=== PATIENT | male | born 1970 | race Caucasian/White ===

== ENCOUNTER 2018-07-07 11:30 | Outpatient (RCR) | payer OTHER, SELFPAY ==
--- NOTE | 2018-07-13 07:26 | HP.PTEVAL ---
Patient's Visit Information CHICA CASTANON is a 47 year old M referred to Physical Therapy by Javier Saha MD with a diagnosis of R menisectomy. Date of Evaluation: 07/13/18 Physical Therapist: Donovan Ruelas DPT - Visit Plan Frequency: 1-2x /Week Duration: 4-6 Weeks Plan: Pt. had a negative zoran's sign, no increased heat at his calf and was not red. he did however complain of increased calf pain as his limiting factor. Due to recent surgery I suggested patient to call his physician for possible need for doppler to rule out DVT in case. I would like patient to start on knee ROM as tolerated, not to force. May start on bike, light. Add in RLE isometrics and hip/core strengthening. May use modalities as tolerated. Progress to functional strength when not painful. - Subjective Findings: Pt. is here today for his initial evaluation with diagnosis of R menisectomy. Pt. reports having pain for a few years, but finally got to the point where he was having intense pain with most daily activities and work. Pt. had surgery on 07/02 in [facility]. Pt. reporst having no pain directly after surgery, so he decided to work in his garage then had intense pain the next day. His main complaint now is his R calf. pt. reports having increased pain with walking, standing. Pt. had minimal pain at rest. He has not been doing any exercises, but has been trying to bend his knee. He denies any N/T in either LE. 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 He is hopeful to reduce his symptoms in order to get back to all activities without limitations. Pt. has already returned to work. - Pain R knee Pain Intensity (Out of 10): 3 Pain Intensity Range: 2, 6 - Objective POSTURE: Pt. has normal posture in stance. Pt. does have sligth L lateral wt. shift and lack slight TKE on R side. PALPATION: Pt. has increased tenderness at R calf. Pt. has normal healing of incisions. pt. has no redness or increased heat at R calf. Pt. has negative zoran's sign as well. NEURO: all in tact no issues with sensation. ROM: R knee- 0-5-88deg AROM, PROM- 0-3-93deg. Tight HS bilaterally. MMT: RLE- ankle 5/5 throughout; knee- ext SLR without extensor lag, flexion- 4/5: hip- flexion 4+/5, abd 4/5, ext 5/5. LLE- 5/5 throughout; except hip abd 4+/5. GAIT: Pt. ambulates without AD, but has decreased step length with LLE, decreased knee flexion of RLE during swing phase and decreased TKE during stance phase of RLE. STAIRS: Step to pattern. - Goals Goal 1:: Pt. to be I with HEP. Goal Time Frame: 4-6 Weeks Goal 2:: Pt. to have increased R knee ROM to 0-0-125deg without increase in symptoms. Goal Time Frame: 4-6 Weeks Goal 3:: Pt. to have increased strength of RLE by 1/2 grade of all effected musculature. Goal Time Frame: 4-6 Weeks Goal 4:: Pt. to ambulate unlimited distances with normal gait pattern no no increase in symptoms. Goal Time Frame: 4-6 Weeks Goal 5:: Pt. to negotiate steps with reciprocal pattern without increase in symptoms. Goal Time Frame: 4-6 Weeks Goal 6:: Pt. to resume all work related activities without increase in symptoms. Goal Time Frame: 4-6 Weeks - Rehabilitation Potential Physical Therapy Diagnosis: Pt. has signs and symptoms consistent with R menisectomy. Pt. has subsequent hypomobility of his R knee, decreased strength, decreased tolerance to ambulation and increased pain. Pt. would benefit from PT to address above limitations progressing back to all work and recreational activties without limitations. Rehabilitation Potential: Excellent - Anticipated Interventions Patient/Client Instruction: Educate patient on: Condition, Plan of Care, Risk Factors, Benefits of Fitness Program For the Purpose of:: To foster healthy habits, To improve decision making, To facilitate caregiver knowledge, To improve self management, To prevent re-injury, To improve ability to perform tasks related to life management Therapeutic Exercise to Include: Strength training, Power training, Endurance training, Postural training, Flexibilty training, Gait and locomotor training, Passive ROM, Active ROM, Dynamic Lumbar Stabilization For the Purpose of:: To decrease pain, To decrease swelling/inflammation, To increase ROM, To improve nutrient delivery to tissue, To increase oxygenation perfusion, To improve muscle performance and motor function, To improve gait and locomotor functions, To improve health of tissue, To decrease soft tissue restriction, To increase flexibility/ROM IF ES: Yes Cryotherapy (ice pack, ice massage): Yes Vasopneumatic device: Yes Comment: As long as DVT has been ruled out. For the Purpose of:: To decrease pain, To decrease swelling/inflammation, To increase ROM Thank you for the opportunity to evaluate your patient. For Medicare and Medicare HMO plans, please review the plan of care and approve it. It will need to be FAXED BACK to us at [phone] for Medicare purposes. For Medicare only, by signing this I certify the plan of care. Please let me know if there are questions or concerns regarding this plan of care. Physician Signature: Date:
--- NOTE | 2019-01-10 08:02 | HP.PTDCNRP_ITS ---
HP - Discharge Summary (1) - Patient Information CHICA CASTANON was seen in my office for initial evaluation on 07/13/18. The following Plan of Care was established for this patient: Initial Frequency: 1-2x /Week Initial Duration: 4-6 Weeks - Anticipated Interventions Patient/Client Instruction: Educate patient on: Condition, Plan of Care, Risk Factors, Benefits of Fitness Program For the Purpose of:: To foster healthy habits, To improve decision making, To facilitate caregiver knowledge, To improve self management, To prevent re- injury, To improve ability to perform tasks related to life management Therapeutic Exercise to Include: Strength training, Power training, Endurance training, Postural training, Flexibilty training, Gait and locomotor training, Passive ROM, Active ROM, Dynamic Lumbar Stabilization For the Purpose of:: To decrease pain, To decrease swelling/inflammation, To increase ROM, To improve nutrient delivery to tissue, To increase oxygenation perfusion, To improve muscle performance and motor function, To improve gait and locomotor functions, To improve health of tissue, To decrease soft tissue restriction, To increase flexibility/ROM IF ES: Yes Cryotherapy (ice pack, ice massage): Yes Vasopneumatic device: Yes Comment: As long as DVT has been ruled out. For the Purpose of:: To decrease pain, To decrease swelling/inflammation, To increase ROM This patient was last seen in our office 07/07/18. Pertinent comments regarding their Physical therapy will appear below: Pt. attended his initial evaluation, but not appt. since. Pt. sill be DC at this point intime. At this point I will be discontinuing this patient from physical therapy. I would be happy to see this patient again in the future if found appropriate by the physician. Thank you! Donovan Ruelas, ANNABELLAT
== END 2018-07-07 19:00 | disposition home or self-care (01) ==
LOC: PT 11:30
PROVIDERS: Family Provider Family Medicine; PCP Family Medicine; Referring Provider Specialist; Visit Provider Specialist
DX: M17.11 Unilateral primary osteoarthritis, right knee (principal); S83.241A Other tear of medial meniscus, current injury, right knee, initial encounter
CPT/HCPCS: 97110; 97161

== ENCOUNTER → 2018-07-19 14:47 | Outpatient (CLI) | payer OTHER, SELFPAY ==
--- NOTE | 2018-07-19 14:51 | VDLE_ITS ---
Reason For Study: Pain in Rt leg RIGHT LEFT GSV is normal. CFV is compressible, spontaneous, phasic, CFV is compressible, spontaneous, phasic, competent, and demonstrates normal competent and demonstrates normal augmentation. augmentation. FV is compressible, spontaneous, phasic, competent and demonstrates normal augmentation. POP V is compressible, spontaneous, phasic, competent and demonstrates normal augmentation. T/P Trunk is compressible. PTV is compressible. RT PerV is compressible. Procedure Exam performed in department. A preliminary report was called and/or faxed to Maria A. Interpretation Summary Deep veins of the right lower extremity are patent and compressible segmentally. There is no evidence of right lower extremity deep vein thrombosis. Valvular competence appears intact within the proximal deep venous system on the right . The right greater saphenous vein appears patent and compressible segmentally. Ordering Physician: Javier Saha Referring Physician: Sebastien Baer Performed By: Lizet Menard RVT and Student
== END ==
PROVIDERS: Family Provider Family Medicine; PCP Family Medicine; Referring Provider Specialist; Visit Provider Specialist
DX: M79.604 Pain in right leg (principal)
CPT/HCPCS: 93971

== ENCOUNTER 2022-02-26 08:10 | Outpatient (RCR) | payer BC, SELFPAY ==
--- NOTE | 2022-02-26 09:16 | HP.PTEVAL ---
Patient's Visit Information CHICA CASTANON is a 51 year old M referred to Physical Therapy by Dr. Donta Hodges DO with a diagnosis of Lumbar Pain. Date of Evaluation: 02/26/22 Physical Therapist: Abida Baca DPT - Visit Plan Frequency: 2x /Week Duration: 4 Weeks Plan: Hold- pending MRI- when ready start aquatic PT- neutral spine - Subjective Patient reports that he had a busy month of Dec- lots of carpet cleaning- no issues- went to [facility]- was okay- woke up day could not stand up. Drove home spent few days miserable- got [facility]- telehealth- steroid and muscle relaxer- nothing was getting better. Thursday after - went to MD- prescribed Gabapentin and steroid. Both ran out last week had a refill. Could walk a little bit. Edilberto Keith Chiropractor- nothing to [place]. Thursday last week carpet cleaned was doing okay. Over the weekend it hit him like a ton of bricks and he feels that he is back to square one. He went to chiro yesterday- felt a little better- whole left side was off. Went [facility] on Thursday- changed steroid and renewed Gabapentin. This morning he is miserable. Normally squatting helped but this weekend it was miserable. He is now most comfortable in squatting position and with his left knee pulled towards his chest. He has had back issues- years ago he was told he had OA and disc issues. Sciatica left side always-he has always just had leg pain. He can't sleep. He has no pain in the back just pain in the left leg. He has tried laying on his belly even with pillows. The leg pain varies so much- the last few days its been in his butt and hamstring. His left foot is a constant tingle. He almost feels like restless leg syndrome. Morning is the worst. Does not have any apt for any other MD's. He has a request in for MRI. He is as bad as he has been. Laying supine with this legs elevated he is almost painfree. 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 Gait: antalgic- decreased stance on the left LE- shift to the right- stopped 1x in 300 feet to stoop down due to pain- no AD. SLS: weight shift but unable to SLS due to pain. ROM: neutral only- all other movement in the lumbar spine increased pain, Hip: WFL. Flex: HS: severe, Gastroc: severe. Most comfortable position: supine with legs elevated on 2 bolsters. Will continue to assess as his inflammation diminishes. - Balance/Special Test Scores Oswestry Low Back Score: 38 - Goals Goal 1:: Patient will be I with HEP and progression Goal Time Frame: 4-6 Weeks Goal 2:: Patient will ambulate >300 feet with a normalized gait pattern Goal Time Frame: 4-6 Weeks Goal 3:: Patient will maintain proper posture t/o tx session to demo increased core s/s Goal Time Frame: 4-6 Weeks Goal 4:: Patient will report 80% improvement Goal Time Frame: 4-6 Weeks - Rehabilitation Potential Physical Therapy Diagnosis: Patient presents with hypomobility- he has decreased pain free ROM, LE and core strength/stabilization, flex and muscular endurance leading to poor posture and increased pain with ADL's. Rehabilitation Potential: Fair - Anticipated Interventions Patient/Client Instruction: Educate patient on: Benefits of Fitness Program Therapeutic Exercise to Include: Strength training, Endurance training, Balance training, Coordination, Agility training, Body mechanics, Postural training, Flexibilty training, Gait and locomotor training, In an aquatic setting, Dynamic Lumbar Stabilization, Shilpi Exercises, Scapular Strength/Stabilization For the Purpose of:: To improve muscle performance and motor function Thank you for the opportunity to evaluate your patient. For Medicare and Medicare HMO plans, please review the plan of care and approve it. It will need to be FAXED BACK to us at [phone] for Medicare purposes. For Medicare only, by signing this I certify the plan of care. Please let me know if there are questions or concerns regarding this plan of care. Physician Signature: Date:
--- NOTE | 2022-08-06 12:21 | HP.PT.NRP ---
CHICA CASTANON was seen in my office for initial evaluation on 02/26/22. The following Plan of Care was established for this patient: Initial Frequency: 2x /Week Initial Duration: 4 Weeks Patient/Client Instruction: Educate patient on: Benefits of Fitness Program Therapeutic Exercise to Include: Strength training, Endurance training, Balance training, Coordination, Agility training, Body mechanics, Postural training, Flexibilty training, Gait and locomotor training, In an aquatic setting, Dynamic Lumbar Stabilization, Shilpi Exercises, Scapular Strength/Stabilization For the Purpose of:: To improve muscle performance and motor function This patient was last seen in our office . Pertinent comments regarding their Physical therapy will appear below: Patient has not attended physical therapy in over 30 days- appropriate to be discharged and return to the MD as needed. At this point I will be discontinuing this patient from physical therapy. I would be happy to see this patient again in the future if found appropriate by the physician. Thank you! Abida Baca, DPT Balance/Gait/Functional tests - Balance/Special Test Scores Oswestry Low Back Score: 38
== END 2022-02-26 19:00 | disposition home or self-care (01) ==
LOC: PT 08:10
PROVIDERS: PCP Family Medicine; Referring Provider Family Medicine; Visit Provider Family Medicine
DX: M54.17 Radiculopathy, lumbosacral region (principal)
CPT/HCPCS: 97162

== ENCOUNTER 2022-02-26 11:19 | Observation (INO) | payer BC, SELFPAY ==
[2022-02-26 11:20] VITALS: BP 133/88; PULSE 78; RESP 18; TEMP 37.1; O2SAT 99; BMI 27.2
--- NOTE | 2022-02-26 11:35 | EDS_ITS ---
HPI History of Present Illness Chief Complaint: Back Informant: patient Onset/Context/Timing Onset: Weeks (3) Context: Sudden Onset Timing: Continuous Quality: Sharp, Dull, Aching, Burning and Throbbing Location: Lumbar, Buttock and Left Leg Worsened by: improves with - (Standing) Relieved by: Remaining Still Associated Symptoms Associated Symptoms: Tingling, Radiation to Left Leg and Fever; Negative for Numbness, Radiation to Right Leg, Abdominal Pain, Dysuria, Unable to Ambulate, Unable to Transfer, Urinary Retention, Urinary Incontinence, Constipation or Fecal Incontinence Narrative Narrative: Patient presents with back pain that has been constant for the past 3 weeks. Patient states it has been getting progressively worse. Been constant. Patient states it is sharp, dull, aching, burning, and throbbing. Patient states it is over the left lower lumbar area and radiates down his left leg. Patient states his pain is worse with standing and better with laying flat. Patient states he has been laying on the couch for the last 3 weeks. Patient admits to some tingling down his left leg. Patient denies any pain into his abdomen. Patient denies any bowel or bladder changes. Patient denies any saddle anesthesia. Patient states that his primary care physician has prescribed steroids and muscle relaxants for him which have only been minimally helpful. states that she has an occupational therapist here at the hospital and has been helping him do exercises at home which have not been helping. and patient feel that that he cannot go home with this pain at this time. [facility] Medical History Allergic reaction Back pain Daytime hypersomnia Hay fever History of fracture of orbit Knee pain Laceration of right thumb Neck pain Obstructive sleep apnea syndrome Snoring Home Medications gabapentin 100 mg capsule mg 02/26/22 [History Last Taken Unknown] methylprednisolone 4 mg tablets in a dose pack mg 02/26/22 [History Last Taken Unknown] Allergy/AdvReac Type Severity Reaction Status Date / Time cats Allergy Unknown Uncoded 02/26/22 11:20 Family History Other Diabetes Surgical History History of knee surgery Social History Smoking Status: Never smoker alcohol intake: current alcohol intake frequency: 0-2 drinks per day Alcohol type: beer ROS ROS ED Constitutional Constitutional ED: Denies chills or fever(s) Eyes Eyes: Denies blurry vision or change in vision ENT ENT ED: Denies rhinorrhea or sore throat Cardiovascular Cardiovascular: Denies chest pain or palpitations Respiratory/Chest Respiratory/Chest: Denies cough or dyspnea Gastrointestinal Gastrointestinal: Denies nausea or vomiting Genitourinary Genitourinary ED: Denies dysuria or hematuria Musculoskeletal Musculoskeletal: Reports back pain; Denies neck pain Integumentary Denies abscess or rash Neurologic Neurologic: Denies headache(s) or weakness Allergic/Immunologic Allergic/Immunologic ED: Denies mouth swelling or urticaria EXAM Physical Exam Const Vital Signs: 02/26/22 11:20 02/26/22 13:23 Temperature 98.8 F Temperature Source Temporal Pulse Rate 78 67 Respiratory Rate 18 14 Blood Pressure 133/88 H 141/83 H Blood Pressure Mean 103 102 Pulse Ox 99 98 Oxygen Delivery Method Room Air Room Air Positive well nourished and well developed General Appearance ED: well developed and NAD HEENT Reports moist mucous membranes Neck supple and no JVD Back/Spine Back/Spine Narrative: There is tenderness and spasm over the left lumbar paraspinal muscles. There is tenderness over the sciatic notch. There is no edema or ecchymosis. There is no bony crepitance or step-off. Range of motion was limited in all motions of the lumbar spine secondary to pain. Straight leg raises were negative bilaterally. Strength is 5/5 bilaterally in the lower extremities. There are no sensory deficits. Deep tendon reflexes are 2/4 bilaterally. Lumbar Spine / Lower Back: ROM limited and straight leg raise negative bilaterally Extremity normal to inspection General Extremety ED: Negative for edema or tenderness General Extremity: Negative for edema Neuro oriented x3 and no sensory deficits noted Sensorium / Orientation: alert Motor Exam: strength 5/5 throughout Deep Tendon Reflexes: Rt Patellar (L4): 2+, Lt Patellar (L4): 2+, Rt Ankle (S1): 2+ and Lt Ankle (S1): 2+ Deep Tendon Reflexes Back: Rt Patellar (L4): 2+, Lt Patellar (L4): 2+, Rt Ankle (S1): 2+ and Lt Ankle (S1): 2+ Psych mental status grossly normal MDM MDM MDM Narrative Medical decision making narrative: Patient is given injection of morphine here. X-rays of the lumbar spine were obtained. There are 2 views. On my interpretation, there is no acute fracture or spondylolisthesis. Patient had no improvement of his pain. The patient was given injections of Dilaudid and Norflex. Patient states his pain went from a 10 to a 9 after this. Patient is concerned about going home and having persistent pain. I discussed the case with the hospitalist. He will admit the patient for intractable pain. Patient and spouse understand and are agreeable with the plan. All questions were answered. Radiography X-Ray: LS SPine, Read by ED Physician, Read by Radiologist, No Fracture and Normal Bony Alignment Diagnostic Testing: Clinical Impression(s) from Imaging Studies Lumbar Spine X-Ray 02/26/22 12:10 IMPRESSION: Minor degenerative spurring of the lumbar spine. Electronically Signed: Neil Wen MD at 12:54 EDT Reading Location ID and State: [facility] / [place] , Service support , Discharge Plan Triage Chief Complaint: Back ED Provider: Shlomo Luo Dx/Rx/DC Orders Clinical Impression: Intractable low back pain, Lumbar radiculopathy Prescriptions: No Action gabapentin 100 mg capsule Label Comments: TAKE 1-3 CAPSULES BY MOUTH THREE TIMES DAILY FOR LEFT LEG PAIN methylprednisolone 4 mg tablets,dose pack Label Comments: TAKE BY MOUTH DIRECTED ON INSIDE OF PACKAGE Primary Care Provider: Sebastien Baer Referrals: Sebastien Baer MD [Primary Care Provider] - Disposition Disposition: Acute Care Hospital [facility]
[2022-02-26] MEDS: Morphine 4 MG/ML Syringe IM (11:52)
--- NOTE | 2022-02-26 12:10 | RAD_ITS ---
STUDY: X-RAY - LUMBAR SPINE REASON FOR EXAM: Male, 51 years old. Injury/Pain TECHNIQUE: 2 view(s) of the lumbar spine were obtained. COMPARISON: None FINDINGS: Normal lumbar lordosis. There is no substantial scoliosis. There is a normal alignment of the vertebrae. Normal vertebral bodies. Very minor anterior endplate spurring is present at several levels. Normal disc space heights. There is no demonstrated fracture. The soft tissue structures are unremarkable. Minor distal aortic calcifications noted. A moderate to large amount of stool is present throughout the colon. RAD/Lumbar Spine 2 or 3 Views IMPRESSION: Minor degenerative spurring of the lumbar spine. Electronically Signed: Neil Wen MD at 12:54 EDT ,
[2022-02-26] MEDS: HYDROmorphone 0.5 MG/0.5 ML SYRINGE IM (12:46)
[2022-02-26] MEDS: Orphenadrine 60 MG/2 ML Ampul IM (12:48)
[2022-02-26 13:23] VITALS: BP 141/83; PULSE 67; RESP 14; O2SAT 98
--- NOTE | 2022-02-26 14:40 | HP.PCM.HOS_ITS ---
[facility] General Date of Service: 02/26/22 Chief Complaint: Left leg pain [facility] Narrative CHICA CASTANON, is a 51 M who presents with a 3-week history of left leg pain. Pain has been very intense on the lateral aspect of his leg. It comes and goes but overall its been very persistent. Patient does have paresthesias. His foot which has gotten worse. He has taken prednisone and now Medrol Dosepak without any significant relief. He has attempted therapy at home but has not been unable to engage adequately due to pain. He has tried exercises where he lays on the floor and tries to extend his back but is barely able to get off the floor due to the pain in his leg. So for the past 3 weeks he has been more less sitting on the couch. He denies any bowel or bladder incontinence. The patient has had a history of sciatica but never to this severity. [facility] Medical History Allergic reaction Back pain Daytime hypersomnia Hay fever History of fracture of orbit Knee pain Laceration of right thumb Neck pain Obstructive sleep apnea syndrome Snoring Home Medications gabapentin 100 mg capsule 100 - 300 mg PO TID NERVES 02/26/22 [History Last Taken 02/26/22] ibuprofen 200 mg tablet 800 mg PO TID PAIN 02/26/22 [History Last Taken 02/26/22] methylprednisolone 4 mg tablets in a dose pack 4 mg PO DAILY 02/26/22 [History Last Taken 02/26/22] Allergy/AdvReac Type Severity Reaction Status Date / Time cats Allergy Unknown Uncoded 02/26/22 11:20 Family History Other Diabetes Surgical History History of knee surgery Social History Smoking Status: Never smoker alcohol intake: current alcohol intake frequency: 0-2 drinks per day Alcohol type: beer ROS ROS Narrative No bowel or bladder incontinence. All review of systems were negative except as mentioned above in the history of present illness and the other review of systems. Vital Signs Vital Signs Vital Signs: 02/26/22 11:20 02/26/22 13:23 Temperature 37.1 C Temperature Source Temporal Pulse Rate 78 67 Respiratory Rate 18 14 Blood Pressure 133/88 H 141/83 H Blood Pressure Mean 103 102 Pulse Ox 99 98 Oxygen Delivery Method Room Air Room Air Weight Weight: 86.183 kg Body Mass Index (BMI) 27.2 Physical Exam Const alert Constitutional Narrative: Uncomfortable. HEENT normocephalic Resp normal respiratory effort, no retractions, no use of accessory muscles and clear to auscultation bilaterally Cardio regular rate, regular rhythm, S1 normal heart sound and S2 normal heart sound GI normal to inspection, nondistended, normoactive bowel sounds, soft to palpation, non-tender and non-distended Neuro Neuro Narrative: Muscle strength out of 5-5 in plantarflexion of his feet as well as dorsiflexion of his great toes bilaterally. Sensation is grossly intact throughout the lower extremities. DTRs diminished in the left patellar reflex. Sensorium / Orientation: awake and alert Psych affect normal Results Radiology Impression Lumbar Spine X-Ray 02/26/22 12:10 IMPRESSION: Minor degenerative spurring of the lumbar spine. Electronically Signed: Neil Wen MD at 12:54 EDT Reading Location ID and State: [address] [place] [address] , Service support , Assessment & Plan Assessment/Plan (1) Lumbar radiculopathy: PLAN: Concern is for disc herniation with nerve root impingement. Other possibilities could be arthritis or even abscess, though the latter is highly unlikely and absence of other constitutional symptoms. Explained to the patient that is very important that he do therapy. Understanding that he has difficulty engaging in therapy due to the pain but he does have to start somewhere. Told him that we will hold off on therapy until we know the results of the MRI but afterwards and likely he is going to require therapy. Patient may require surgery but his initial instinct was to not want surgery but is unclear what is causing his pain specifically. Patient has no red flag signs for cauda equina at this point in time. Pain control to be with ketorolac, scheduled acetaminophen and scheduled cyclobenzaprine and as needed oxycodone. PLAN: Plan VTE prophylaxis: Not indicated given current observation status. Charges/Coding Visit Charges OBSV E&M: 66571 Initial observation care L2
[2022-02-26 14:53] VITALS: BP 141/83; PULSE 67; RESP 14; TEMP 37.1; O2SAT 98
[2022-02-26 15:10] VITALS: BMI 27.1
[2022-02-26 15:16] VITALS: BP 133/89; PULSE 69; RESP 16; TEMP 36.7; O2SAT 99
--- NOTE | 2022-02-26 15:17 | MRI_ITS ---
STUDY: MRI LUMBAR SPINE WITHOUT CONTRAST REASON FOR EXAM: Male, 51 years old. radicular back pain -- left leg pain and paresthesias TECHNIQUE: Standardized fat and water weighted pulse sequences were obtained in the sagittal and axial planes. COMPARISON: Lumbar spine radiograph from today. FINDINGS: T12-L1: Normal endplates. Normal disc height, hydration and morphology. Normal bilateral facet joints. Normal central canal and bilateral lateral recesses. Normal bilateral intervertebral neural foramina. Normal lumbar lordosis. There is no substantial scoliosis. Normal conus medullaris that terminates at the L1 level. L1-2: Normal endplates. Normal disc height, hydration and morphology. Normal bilateral facet joints. Normal central canal and bilateral lateral recesses. Normal bilateral intervertebral neural foramina. L2-3: Normal endplates. Normal disc height, hydration and morphology. Normal bilateral facet joints. Normal central canal and bilateral lateral recesses. Normal bilateral intervertebral neural foramina. L3-4: Normal endplates. Normal disc height, hydration and morphology. Normal bilateral facet joints. Normal central canal and bilateral lateral recesses. Normal bilateral intervertebral neural foramina. L4-5: Normal endplates. Normal disc height, hydration and morphology. Normal bilateral facet joints. Normal central canal and bilateral lateral recesses. Normal bilateral intervertebral neural foramina. L5-S1: Disc space narrowing and desiccation. Small broad-based posterior disc protrusion on the left impinging the L5 and S1 nerve roots. Central canal and right neural foramen patent. Normal visualized sacral ala. Normal visualized paraspinous soft tissue structures. MRI/Spine Lumbar (Routine) IMPRESSION: Small broad-based posterior disc protrusion at L5-S1 with impingement upon the L5 and S1 nerve root on the left. Electronically Signed: Walter Fowler MD at 21:33 EDT ,
[2022-02-26 17:46] VITALS: BP 137/80; PULSE 74
[2022-02-26] MEDS: MethylPREDNISolone DosePak 4 MG BOX PO ×2 (17:48→21:15)
[2022-02-26] MEDS: Ketorolac 30 MG/ML Syringe IV ×2 (17:48→23:17)
[2022-02-26 21:13] VITALS: BP 126/77; PULSE 79; RESP 16; TEMP 36.3; O2SAT 96
[2022-02-26] MEDS: cycloBENZAPRine HCl 10 MG Tablet PO (21:15)
[2022-02-26] MEDS: Gabapentin 100 MG Capsule PO (21:20)
[2022-02-26] MEDS: oxyCODONE 5 MG Tablet PO (21:20)
[2022-02-26] MEDS: 0.9% Saline Lock 10 ML Syringe IV (23:18)
[2022-02-27 03:12] VITALS: BP 129/82; PULSE 61; RESP 18; TEMP 36.6; O2SAT 98
[2022-02-27] MEDS: 0.9% Saline Lock 10 ML Syringe IV ×2 (05:13→23:28)
[2022-02-27] MEDS: Gabapentin 100 MG Capsule PO ×2 (05:13→13:01)
[2022-02-27] MEDS: Ketorolac 30 MG/ML Syringe IV ×4 (05:13→23:28)
[2022-02-27] MEDS: cycloBENZAPRine HCl 10 MG Tablet PO ×3 (05:13→20:45)
[2022-02-27 09:02] VITALS: BP 136/87; PULSE 81; RESP 16; TEMP 36.5; O2SAT 97
[2022-02-27] MEDS: oxyCODONE 5 MG Tablet 10 MG PO ×2 (09:05→20:45)
[2022-02-27] MEDS: MethylPREDNISolone DosePak 4 MG BOX PO ×2 (09:11→20:46)
[2022-02-27 12:54] VITALS: BP 138/86; PULSE 78; RESP 16; TEMP 36.6; O2SAT 96
--- NOTE | 2022-02-27 15:06 | PCM.PN.HOSP ---
Subjective Subjective Patient that he is still having ongoing left leg pain. Leg is predominantly sore in the buttock and into the hamstring with intermittent pain into his left calf. He has some ongoing numbness in his foot but no motor deficits in the lower extremity. He denies any bowel bladder changes. He states that overall his back pain is not that severe however the leg pain that has become debilitating for him. Objective Data Objective Data Vital Signs: Vital Signs Temp Pulse Resp BP Pulse Ox O2 Del Method 97.9 F 78 16 138/86 H 96 Room Air 02/27/22 12:54 02/27/22 12:54 02/27/22 12:54 02/27/22 12:54 02/27/22 12:54 02/27/22 12:54 Oxygen Delivery Method Room Air Weight: 83.3 kg Body Mass Index (BMI) 27.1 Intake & Output: Intake and Output for Last 24 Hours 02/25/22 02/26/22 02/27/22 23:59 23:59 23:59 Intake Total 960 / 960 620 / 620 Balance 960 / 960 620 / 620 Radiography Diagnostic Testing: Radiology Impression Lumbar Spine MRI 02/26/22 15:17 IMPRESSION: Small broad-based posterior disc protrusion at L5-S1 with impingement upon the L5 and S1 nerve root on the left. Electronically Signed: Walter Fowler MD at 21:33 EDT , Physical Exam Const alert, oriented x3, no apparent distress, average body habitus, healthy appearing and well nourished Constitutional Narrative: Middle-aged white male sitting up in bed, appears comfortable nontoxic HEENT head/scalp atraumatic and moist oral mucous membranes Head and Scalp: normocephalic Resp normal respiratory effort, no use of accessory muscles and clear to auscultation bilaterally Auscultation: Negative for crackles, rales, rhonchi or wheezes Cardio regular rate, regular rhythm, S1 normal heart sound, S2 normal heart sound, no murmurs, no rub, no gallops, no clicks and no JVD GI normal to inspection, nondistended, normoactive bowel sounds, soft to palpation and non-tender Extremity no clubbing, cyanosis or edema Extremity Narrative: 2+ pedal pulses Neuro Neuro Narrative: Reflexes are normal, no motor deficits, sensory deficit noted at distal left lower extremity, positive straight leg raise Speech: speech normal Assessment & Plan Assessment/Plan (1) Intractable low back pain: (2) Lumbar radiculopathy: (3) HNP (herniated nucleus pulposus), lumbar: PLAN: Plan Lumbar radiculopathy secondary to L5-S1 HNP -MRI shows small broad-based disc protrusion at L 5 S1 with impingement upon the L5 and S1 nerve root on the left but no central canal stenosis or right neural foramina occlusion -Continue Toradol -Continue Oxy -Continue Medrol Dosepak -Continue Flexeril -Increase gabapentin from 100 mg to 300 mg 3 times daily -Patient was having increased symptoms with straight extension based exercises at home--> given this I suspect there is a lateral component that needs to be addressed first and probably some extensive inflammation -We will consult pain management for possible injection to improve pain tolerance and mobility and then patient has been referred to physical therapy to be initiated after discharge -Anticipate Dr. Art to see patient this evening and hopefully schedule procedure for tomorrow with discharge within the next 24 hours CINDY -Patient utilizes [employer] at home -Encourage patient to bring in home unit -Follows with pulmonary medicine DVT prophylaxis -Encourage mobility and out of bed -Overall low risk Charges/Coding Visit Charges Inpatient E&M: 11662 Subs Hosp L2
[2022-02-27 17:07] VITALS: BP 125/89; PULSE 71; RESP 16; TEMP 36.5; O2SAT 98
[2022-02-27 20:40] VITALS: BP 128/79; PULSE 75; RESP 16; TEMP 36.7; O2SAT 97
[2022-02-27] MEDS: Gabapentin 300 MG Capsule PO (20:45)
[2022-02-28] VITALS (9 sets, daily range): BP systolic 124–134; BP diastolic 82–94; PULSE 65–84; RESP 16–18; TEMP 36.5–37; O2SAT 95–98
[2022-02-28] MEDS: Ketorolac 30 MG/ML Syringe IV (05:35)
[2022-02-28] MEDS: cycloBENZAPRine HCl 10 MG Tablet PO (05:35)
[2022-02-28] MEDS: Gabapentin 300 MG Capsule PO (05:39)
[2022-02-28] MEDS: oxyCODONE 5 MG Tablet 10 MG PO (08:14)
[2022-02-28] MEDS: MethylPREDNISolone DosePak 4 MG BOX PO (08:15)
--- NOTE | 2022-02-28 08:50 | RAD_ITS ---
STUDY: X-RAY - LUMBAR SPINE REASON FOR EXAM: Male, 51 years old. LUMBAR EPIDURAL IN OR, FLUORO TIME 1.5 SEC, 3.46 MGY TECHNIQUE: 1 view(s) of the lumbar spine were obtained. COMPARISON: None FINDINGS: Intraoperative images provided for lumbar epidural. RAD/Spine 1 View Any Level IMPRESSION: Intraoperative imaging provided for lumbar epidural. Electronically Signed: Kit Beauchamp MD at 15:27 EDT ,
[2022-02-28] MEDS: Lactated Ringers 1,000 ML 15 ML IV (09:25)
[2022-02-28] MEDS: Triamcinolone Acetonide 40 MG/ML Vial (09:46)
--- NOTE | 2022-02-28 10:50 | CASEMGMT ---
Pt already provided script for OP therapy for discharge. Luna VARGHESE CM
--- NOTE | 2022-02-28 11:09 | PCM.DC.SUM ---
Providers Date of Admission: 02/26/22 Date of Discharge: 02/28/22 Primary Care Physician: Dr. Sebastien Baer MD Consultations 02/27/22 09:47 Consult: Pain Management Routine Consulting Provider: Brinda Art Reason for Consult: HNP Lumbar for injection EMERGENT Consult: No MD Notified: Yes Date Notified: 02/27/22 Time Notified: 09:47 Method of Notification: Message w/ office staff Reason For Visit: BACK PAIN Diagnosis Discharge Diagnosis (1) Intractable low back pain: Status: Acute Code(s): M54.59 - Other low back pain (2) Lumbar radiculopathy: Status: Acute Code(s): M54.16 - Radiculopathy, lumbar region (3) HNP (herniated nucleus pulposus), lumbar: Status: Acute Code(s): M51.26 - Other intervertebral disc displacement, lumbar region Medications at Discharge Home Medications ibuprofen 200 mg tablet 800 mg PO TID PAIN 02/26/22 cyclobenzaprine 10 mg tablet 10 mg PO TID 14 days #42 tabs 02/28/22 gabapentin 300 mg capsule 300 mg PO TID #0 caps 02/28/22 lidocaine 5 % topical patch (Lidoderm) 2 patch topical DAILY #30 ea 02/28/22 oxycodone 5 mg tablet 10 mg PO Q4H PRN PRN Pain Score 6-10 3 days #24 tabs 02/28/22 Hospital Course Procedures None Summary of Care Provided Minutes Spent on Discharge: 35 Hospital Course: 51-year-old male past medical history of sciatica, who comes in with a 3-week history of left leg pain that has been intense. He has associated paresthesias. He has taken prednisone and was currently on Medrol Dosepak. He had a tried therapy at home but he has not been able to do his activities of daily living because of pain. MRI of the back showed small disc protrusion at L5-S1 with impingement upon the L5 and S1 nerve root. He was admitted and managed on multi per modalities including Toradol, oxycodone, Medrol Dosepak, Flexeril and gabapentin. He completed Medrol Dosepak on 02/27/22. Pain management was consulted. Patient had an epidural injection today 02/28/22. Patient was discharged home on oxycodone as needed, gabapentin, Flexeril scheduled as well ibuprofen. Lidoderm patches were also given. He will follow-up with his primary care doctor within [address] Art within 2 weeks. Physical Exam Narrative Physical exam: General: Alert, Oriented x3, Cooperative, No apparent distress HEENT: Atraumatic Oral: Moist Mucosa Neck: Supple Lungs: Clear to auscultation Cardiovascular: HS I+II, regular, no murmurs Abdomen: Bowel Sounds Present, Soft, Non Tender Extremities: No edema Skin: No rashes, No breakdown Neurological: Grossly intact Psych/Mental Status: Appropriate Weight / BMI Weight Weight: 83.3 kg Body Mass Index (BMI) 27.1 D/C Instructions Discharge Diet: No restrictions Meaningful Use Info Meaningful Use Diagnoses (Choose all that apply): None applicable Discharge Plan Admission Admit Date/Time: 02/26/22 14:36 Primary Reason for Your Visit: Acute on chronic back pain Attending Provider: Cassandra Mascorro Primary Care Provider: Sebastien Baer Consulting Providers: Shlomo Cummings ; Brinda Art ; Génesis Casanova Instructions Additional Instructions / Restrictions: Take note of changes to your medications. Follow-up with your exercise regimen per PT Follow-up with Dr. Art in the outpatient as scheduled Discharge Orders/Prescriptions Prescriptions: New cyclobenzaprine 10 mg Tablet 10 mg PO TID 14 Days Qty: 42 0RF gabapentin 300 mg Capsule 300 mg PO TID Qty: 0 0RF oxycodone 5 mg Tablet 10 mg PO Q4H PRN PRN (Reason: Pain Score 6-10) 3 Days Qty: 24 0RF lidocaine [Lidoderm] 5 % adhesive patch,medicated 2 patch topical DAILY Qty: 30 0RF Rx Instructions: leave on most painful area for up to 12 hrs Continued ibuprofen 200 mg Tablet 800 mg PO TID Discontinued gabapentin 100 mg capsule 100 - 300 mg PO TID Label Comments: TAKE 1-3 CAPSULES BY MOUTH THREE TIMES DAILY FOR LEFT LEG PAIN methylprednisolone 4 mg tablets,dose pack 4 mg PO DAILY Label Comments: TAKE BY MOUTH DIRECTED ON INSIDE OF PACKAGE Referrals / Follow Up: Brinda Art MD [Med Staff - Active Staff] - Within 2 Weeks Sebastien Baer MD [Primary Care Provider] - In 1 Week Disposition Disposition (needs filled in before D/C Order can be placed): Home, Self Care Charges/Coding Visit Charges Inpatient E&M: 60901 Disch Hosp
--- NOTE | 2022-02-28 11:46 | PHA.DC.MC ---
Pharmacy Service has performed discharge medication reconciliation and counseling for this patient. 1. CYCLOBENZAPRINE 10MG PO TID X 14 DAYS 2. LIDOCAINE 5% PATCH 2 PATCHES DAILY 3. OXYCODONE 10MG PO Q4H PRN PAIN X 3 DAYS The patient's discharge medication list was reviewed for discrepancies and discrepancies were resolved. Home Medications ibuprofen 200 mg tablet 800 mg PO TID PAIN 02/26/22 cyclobenzaprine 10 mg tablet 10 mg PO TID 14 days #42 tabs 02/28/22 gabapentin 300 mg capsule 300 mg PO TID #0 caps 02/28/22 lidocaine 5 % topical patch (Lidoderm) 2 patch topical DAILY #30 ea 02/28/22 oxycodone 5 mg tablet 10 mg PO Q4H PRN PRN Pain Score 6-10 3 days #24 tabs 02/28/22 The patient was counseled on the following discharge medications and changes in medications for homegoing were reviewed. The Reason for Use, instructions for use, and potential side effects were reviewed for all new medications. The patient's questions regarding all of their medications were answered. The patient was able to verbally demonstrate an understanding of their discharge medications. Patient counseled by pharmacy schedulerWilbert.
== END 2022-02-28 10:48 | disposition home or self-care (01) ==
LOC: ED 14:22 → PCU 14:48
PROVIDERS: Anesthesiology Pain Medicine; Emergency Provider Emergency Medicine; PCP Family Medicine; Visit Provider Internal Medicine
PROC: 3E0S3BZ Introduction of Anesthetic Agent into Epidural Space, Percutaneous Approach (ICD-10-PCS; CPT 62322; principal; 2022-02-28 09:30)
DX: M51.16 Intervertebral disc disorders with radiculopathy, lumbar region (principal); M51.26 Other intervertebral disc displacement, lumbar region; R10.9 Unspecified abdominal pain; G47.33 Obstructive sleep apnea (adult) (pediatric); Z79.899 Other long term (current) drug therapy
CPT/HCPCS: 62323; 01992; 64483; 72020; 72100; 72148; 96372; 96374; 96376; 99218; 99284; J7120; A4216; G0378

== ENCOUNTER → 2023-07-22 | Outpatient (CLI) | payer BC, SELFPAY ==
--- OUTSIDE RECORDS SUMMARY | 2023-07-22 06:56 | XMS RPT_ITS | CCD ---
Author Name Unknown Address [address] [place] [address] [id number] [place] [address] Organization [facility] Care Team Providers Care Clinical Rehabilitation Specialist Name Role Phone CINDY SANDY Attending Unavailable KRISTEN WILCOX Attending Unavailable Results Test Name Value Interpretation Reference Range Facil ity Encounters Encounter Date Encounter Type Care Provider Facility Start: 07-02-2018 End: 07-02-2018 Patient encounter procedure CINDY SANDY Facility:B Start: 06-21-2018 End: 06-22-2018 Patient encounter procedure KRISTEN WILCOX Facility:[facility] Payers Date Payer Category Payer Private Health Insurance [id number] 1970 Unknown [id number] 1970 Unknown [id number] Summary Purpose Family History No Family History Records Found Advance Directives No Advanced Directives Records Found Additional Source Comments (unrecognized sect ion and content) No Status Records Found INFORMATION SOURCE (unrecogn ized section and content) FOR RECORDS PERTAINING TO PATIENTS WHO ARE OR HAVE BEEN ENROLLED IN A CHEMICAL DEPENDENCY/SUBSTANCEABUSE PROGRAM, SOME INFORMATION MAY BE OMITTED. This clinical summary was aggregated from multiple sources. Caution should be exercised in using it in the provision of clinical care. This summary normalizes information from multiple sources, and as a consequence, information in this document may materially change the coding, format and clinical context of patient data. In addition, data may be omitted in some cases. CLINICAL DECISIONS SHOULD BE BASED ON THE PRIMARY CLINICAL RECORDS. [employer] [facility]. provides no warranty or guarantee of the accuracy or completeness of information in this document.
[2023-07-22 08:07] LABS: Absolute Lymphocyte Count 1.87 X10^3/uL (0.83-4.51); Basophil# 0.02 X10^3/uL; Basophil% 0.3 % (0-1); Eosinophil# 0.22 X10^3/uL; Eosinophils% 3.3 % (0-5); Hematocrit 42.3 % (40-54); Hemoglobin 14.2 g/dL (13.0-16.5); Lymphocyte # 1.87 X10^3/ul (0.83-4.51); Lymphocyte % 27.8 % (19-41); Mean Corp Hgb Conc 33.6 g/dL (32-36); Mean Corpuscular Volume 86.3 fL (80-94); Mean Platelet Vol. 9.5 fl (6.2-12.0); Monocyte# 0.59 X10^3/uL; Monocyte% 8.8 % (0-10); NRBC Flagged by Analyzer 0 % (0-5); Neutrophil # 3.99 X10^3/uL (2.7-7.7); Neutrophil % 59.2 % (47-70); Platelet Count 255 K/mm3 (150-450); RBC Distribution Width CV 11.9 % (11.6-14.6); RBC Distribution Width SD 37.5 fl (35.1-43.9); White Blood Count 6.7 K/mm3 (4.4-11.0)
[2023-07-22 08:48] LABS: ALB/GLOB Ratio 1.1 RATIO (0.9-2.4); AST(SGOT) 17 U/L (15-37); Alanine Aminotransfer ALT/SGPT 31 U/L (16-61); Albumin, Serum 3.8 g/dL (3.2-5.0); Alkaline Phosphatase 50 U/L (45-117); Anion Gap 2 (5-15); BUN 17 mg/dL (7-18); BUN/Creat Ratio 18.6 RATIO (10-20); Calcium,Total 9.1 mg/dL (8.5-10.1); Chloride 110 mmol/L (98-107); Cholesterol 231 mg/dL (200); Creatinine, Serum 0.91 mg/dL (0.70-1.30); EST Glomerular Filtration Rate 93 mL/min (>60); Est Glom Filt Rate - Afr Amer 112 mL/min (>60); Globulin 3.4 g/dL (2.2-4.2); Glucose 108 mg/dL (74-106); High Density Lipoprotein 37 mg/dL; PSA,Total - Annual Screen 0.96 ng/mL (0.00-4.00); Potassium 3.9 mmol/L (3.5-5.1); Protein, Total 7.2 g/dL (6.4-8.2); Sodium Level 140 mmol/L (136-145); Triglycerides 144 mg/dL; Very Low Density Lipoprotein 29 mg/dL (5-40)
== END | disposition home or self-care (01) ==
LOC: LAB 06:51
PROVIDERS: PCP Nurse Practitioner Family; Referring Provider Nurse Practitioner Family; Visit Provider Nurse Practitioner Family
DX: Z00.00 Encounter for general adult medical examination without abnormal findings (principal); Z12.5 Encounter for screening for malignant neoplasm of prostate
CPT/HCPCS: 36415; 80053; 80061; 84153; 85025; G0103

== ENCOUNTER → 2024-09-14 | Outpatient (CLI) | payer BC, SELFPAY ==
[2024-09-14 07:30] LABS: Absolute Lymphocyte Count 1.63 X10^3/uL (0.83-4.51); Absolute Neutrophil Count 4.8 X10^3/uL (2.0-7.7); Basophil# 0.05 X10^3/uL; Basophil% 0.7 % (0-1); Eosinophils% 2.8 % (0-5); Hematocrit 42.8 % (40-54); Hemoglobin 14.7 g/dL (13.0-16.5); Lymphocyte # 1.63 X10^3/ul (0.83-4.51); Lymphocyte % 22.5 % (19-41); Mean Corp Hgb Conc 34.3 g/dL (32-36); Mean Corpuscular Hgb 29.3 pg (27.0-32.0); Mean Corpuscular Volume 85.4 fL (80-94); Monocyte# 0.55 X10^3/uL; Monocyte% 7.6 % (0-10); NRBC Flagged by Analyzer 0 % (0-5); Neutrophil # 4.77 X10^3/uL (2.7-7.7); Platelet Count 273 K/mm3 (150-450); RBC Distribution Width CV 12.4 % (11.6-14.6); RBC Distribution Width SD 38.5 fl (35.1-43.9); Red Blood Count 5.01 M/mm3 (4.6-6.2); White Blood Count 7.2 K/mm3 (4.4-11.0)
[2024-09-14 08:56] LABS: ALB/GLOB Ratio 1.5 RATIO (0.9-2.4); AST(SGOT) 25 U/L (<=37); Alanine Aminotransfer ALT/SGPT 27 U/L (<=46); Albumin, Serum 4.3 g/dL (3.5-5.0); Alkaline Phosphatase 56 U/L (40-129); Anion Gap 10 (5-15); BUN 18 mg/dL (4-19); BUN/Creat Ratio 18.4 RATIO (10-20); Calcium,Total 9.2 mg/dL (7.6-11.0); Carbon Dioxide 24.6 mmol/L (21.0-32.0); Chloride 107 mmol/L (98-108); Creatinine, Serum 0.98 mg/dL (0.70-1.20); EST Glomerular Filtration Rate 92 (>60); Globulin 2.8 g/dL (2.2-4.2); Glucose 117 mg/dL (70-99); Potassium 4.4 mmol/L (3.3-5.1); Protein, Total 7.1 g/dL (5.9-8.4); Sodium Level 141 mmol/L (133-145); Total Bilirubin 0.36 mg/dL (0.00-1.30)
[2024-09-14 10:01] LABS: Cholesterol 221 mg/dL (<=200); High Density Lipoprotein 41 mg/dL; Low Density Lipoprotein Calc. 152 mg/dL; Triglycerides 143 mg/dL; Very Low Density Lipoprotein 29 mg/dL (5-40); cholesterol:hdl ratio screen 5.42
[2024-09-14 10:05] LABS: Ferritin 290 ng/mL (37-417); PSA,Total - Annual Screen 0.99 ng/mL (0.02-4.00); Vitamin B12 621 pg/mL (180-914); Vitamin D,25 Hydroxy 17.4 ng/mL (30-100)
[2024-09-14 10:18] LABS: Iron 62 ug/dL (65-175)
== END | disposition home or self-care (01) ==
LOC: LAB 07:04
PROVIDERS: PCP Nurse Practitioner Family; Referring Provider Nurse Practitioner Family; Visit Provider Nurse Practitioner Family
DX: Z00.00 Encounter for general adult medical examination without abnormal findings (principal); R53.83 Other fatigue; Z12.5 Encounter for screening for malignant neoplasm of prostate
CPT/HCPCS: 36415; 80053; 80061; 82306; 82607; 82728; 83540; 84153; 84403; 84439; 84443; 85025; G0103